=== PATIENT | female | born 1960 | race Caucasian/White ===

== ENCOUNTER → 2018-01-11 | Outpatient (CLI) | payer OTHER ==
--- NOTE | 2018-01-11 09:52 | KCIC ---
EXAM: Abdomen sonogram. HISTORY: Nausea. TECHNIQUE: Sonographic imaging of the abdomen was performed. COMPARISON: None. FINDINGS: The exam is limited due to body habitus. There is hepatomegaly. There is hepatic steatosis. No focal hepatic lesion is seen. There is a single mobile stone within the gallbladder. There is no gallbladder wall thickening. The common bile duct is normal in caliber. The right kidney is unremarkable. The pancreas is partially obscured due to bowel gas. The inferior vena cava is partially obscured due to body habitus. The aorta is not assessed. IMPRESSION: 1. Hepatomegaly and hepatic steatosis. 2. Cholelithiasis. 3. Limited exam due to body habitus and bowel gas. Electronically signed by: Beatriz Cristobal MD (01/11/2018 9:48 AM) [email or web address]
== END | disposition home or self-care (01) ==
LOC: KCIC US 08:23
PROVIDERS: ATTEND Family Medicine
DX: K76.0 Fatty (change of) liver, not elsewhere classified (principal); K80.20 Calculus of gallbladder without cholecystitis without obstruction; R16.0 Hepatomegaly, not elsewhere classified
CPT/HCPCS: 76705

== ENCOUNTER → 2019-01-14 | Day surgery (SDC) | payer MEDICARE, OTHER ==
[~2019-01-14] MED LIST: HYDROmorphone 2 MG/ML VIAL IV PRN; INSU300I SQ; IV RINGERS,LACTATED 1000ML 1,000 ML IV SCH; LIDOCAINE 2% PF 5 ML VIAL. ONE; LIRA0.6P2 SQ; METF500T16 PO; MORPHINE SULFATE 2 MG/ML VIAL. IV PRN; ONDANSETRON PF 4 MG/2 ML VIAL. IV PRN; PREG100C PO; PROCHLORPERAZINE 10 MG/2 ML VIAL. IV PRN; PROPOFOL 40 ML IV ONE; VENL150C PO; fentaNYL PF VIAL 100 MCG/2 ML VIAL IV PRN
--- NOTE | 2019-01-14 12:39 | PDOC1 ---
History and Physical Date of Admission Date of Admission DATE: 01/14/19 TIME: 12:37 Identification/Chief Complaint Chief Complaint screening colon cancer Source Source: Patient History of Present Illness History of Present Illness Had a colonoscopy 10 years ago. Denies any colon problems. Past Medical History Endocrine: Diabetes Past Surgical History Past Surgical History: No pertinent history Family History Family History: No Significant Social History Smoke: <1 pack per day ALCOHOL: rare Drugs: None Current Medications Current Medications Current Medications Ondansetron HCl (Zofran) 4 mg PRN Q6HRS PRN IV NAUSEA/VOMITING; Start 01/14/19 at 07:00; Stop 01/15/19 at 06:59 Fentanyl Citrate (Fentanyl 2ml Vial) 25 mcg PRN Q5MIN PRN IV MILD PAIN 1-3; Start 01/14/19 at 07:00; Stop 01/15/19 at 06:59 Fentanyl Citrate (Fentanyl 2ml Vial) 50 mcg PRN Q5MIN PRN IV MODERATE TO SEVERE PAIN; Start 01/14/19 at 07:00; Stop 01/15/19 at 06:59 Morphine Sulfate (Morphine Sulfate) 1 mg PRN Q10MIN PRN IV SEVERE PAIN 7-10; Start 01/14/19 at 07:00; Stop 01/15/19 at 06:59 Ringer's Solution 1,000 ml @ 30 mls/hr Q24H IV ; Start 01/14/19 at 07:00; Stop 01/14/19 at 18:59 Hydromorphone HCl (Dilaudid) 0.5 mg PRN Q10MIN PRN IV SEV PAIN, Second choice; Start 01/14/19 at 07:00; Stop 01/15/19 at 06:59 Prochlorperazine Edisylate (Compazine) 5 mg PACU PRN PRN IV NAUSEA, MRX1; Start 01/14/19 at 07:00; Stop 01/15/19 at 06:59 Allergies Allergies: Coded Allergies: No Known Drug Allergies (Unverified , 01/14/19) Physical Exam General: Alert, Oriented X3, Cooperative, No acute distress HEENT: Atraumatic, PERRLA, EOMI Lungs: Clear to auscultation, Normal air movement Heart: RRR, no murmurs Abdomen: Normal bowel sounds, Soft, No tenderness, Other (obese) Rectal Exam: not examined Extremities: No edema Skin: No significant lesion Neuro: Normal speech Psych/Mental Status: Mental status NL VTE Prophylaxis Ordered VTE Prophylaxis Devices: No VTE Pharmacological Prophylaxi: No Assessment/Plan Assessment/Plan Screening colon cancer-Colonoscopy CHRISTIANO HERCULES MD Jan 14, 2019 12:39
[2019-01-14 13:40] VITALS: BP 96/59
--- NOTE | 2019-01-17 18:11 | PATHOLOGY ---
[facility] Accession Number: [id number] . 01 Material submitted: . PART A: colon - 120CM POLYP BIOPSY PART B: colon - 60CM POLYP BIOPSY . 01 Clinical history: . Screen . 02 Diagnosis: A. Colon biopsies, colon polyp at 120 cm: - Tubular adenoma. . B. Colon biopsy, polyp at 60 cm: - Hyperplastic polyp. (JPM:bird; 01/17/2019) QMS/01/17/2019 . 02 Comment: There is no high grade dysplasia or evidence of malignancy. . 02 Electronically signed: . Alonzo Chance MD, Pathologist NPI- [id number] . 01 Gross description: . A. Received in formalin labeled "[place], 120 cm polyp," are 4 segments of simons soft tissue measuring 1.5 x 1.1 x 0.4 cm in aggregate dimensions and ranging from 0.4 to 0.9 cm in maximum dimension. The specimen is submitted entirely in cassette A1. . B. Received in formalin labeled "[place], 60 cm polyp biopsy," is a single segment of simons soft tissue measuring 0.6 cm in maximum dimension. The specimen is entirely submitted in cassette B1. (TSD; 01/14/2019) TOB/TOB . 02 Pathologist provided ICD-10: D12.6, K63.5 . 02 CPT . 374738, 346760 Specimen Comment: A courtesy copy of this report has been sent to Specimen Comment: [phone], . Specimen Comment: Report sent to / DR FINN Performed at: [address], [place], [place] [id number] MD Ricky Marion MD Phone: [phone] Performed at: [address] [id number] MD Alonzo Chance MD Phone: [phone]
== END ==
LOC: ENDOS 12:12
PROVIDERS: ATTEND Surgery
DX: Z12.11 Encounter for screening for malignant neoplasm of colon (principal); D12.3 Benign neoplasm of transverse colon; K63.5 Polyp of colon; F17.210 Nicotine dependence, cigarettes, uncomplicated; Z98.890 Other specified postprocedural states
CPT/HCPCS: 45380; 45385; 88305; J2001; J2704

== ENCOUNTER → 2019-12-02 | Outpatient (CLI) | payer MEDICARE ==
[2019-01-14 13:40] VITALS: BP 96/59
[~2019-12-02] MED LIST changes: -HYDROmorphone 2 MG/ML VIAL IV PRN; -IV RINGERS,LACTATED 1000ML 1,000 ML IV SCH; -LIDOCAINE 2% PF 5 ML VIAL. ONE; -MORPHINE SULFATE 2 MG/ML VIAL. IV PRN; -ONDANSETRON PF 4 MG/2 ML VIAL. IV PRN; -PROCHLORPERAZINE 10 MG/2 ML VIAL. IV PRN; -PROPOFOL 40 ML IV ONE; -fentaNYL PF VIAL 100 MCG/2 ML VIAL IV PRN
--- NOTE | 2019-12-02 15:53 | CARD ---
MR#: [id number] Date of Study: 12/02/2019 Ordering Physician: Nena FINN, Referring Physician: Nena FINN, Tech: Beverley Bhatti RDCS APPROVED REPORT EXAM: Two-dimensional and M-mode echocardiogram with Doppler and color Doppler. Other Information Quality : Fair INDICATION Murmur 2D DIMENSIONS RVDd2.0 (2.9-3.5cm)Left Atrium(2D)3.0 (1.6-4.0cm) IVSd1.4 (0.7-1.1cm)Aortic Root(2D)2.7 (2.0-3.7cm) LVDd3.0 (3.9-5.9cm)LVOT Diameter2.3 (1.8-2.4cm) PWd1.5 (0.7-1.1cm)LVDs2.3 (2.5-4.0cm) FS (%) 30.0 %SV18.5 ml LVEF(%)60.0 (>50%) Aortic Valve AoV Peak Aurelio.204.5cm/sAoV VTI34.5cm AO Peak GR.16.7mmHgLVOT Peak Aurelio.163.5cm/s LVOT VTI 30.99cmAO Mean GR.10mmHg JIMBO (VMAX)3.79rv2CMU (VTI)3.58cm2 Mitral Valve MV E Zvgihvqk31.3cm/sMV DECEL [id number] MV A Dcbtnreu640.6cm/sMV LPU791tc E/A Ratio0.8MVA (PHT)1.75cm2 TDI E/Lateral E'10.0E/Medial E'11.7 Pulmonary Vein S1 Pkymfhkr74.5cm/sD2 Ybvucbbs40.1cm/s LEFT VENTRICLE The left ventricle is normal size. There is normal left ventricular wall thickness. The left ventricu lar systolic function is normal and the ejection fraction is within normal range. The Ejection Fracti on is 60-65%. There is normal LV segmental wall motion. Transmitral Doppler flow pattern is Grade I-a bnormal relaxation pattern. RIGHT VENTRICLE The right ventricle is normal size. The right ventricular systolic function is normal. ATRIA The left atrium size is normal. The right atrium size is normal. The interatrial septum is intact wit h no evidence for an atrial septal defect or patent foramen ovale as noted on 2-D or Doppler imaging. AORTIC VALVE The aortic valve is calcified but opens well. Doppler and Color Flow revealed no significant aortic r egurgitation. There is no significant aortic valvular stenosis. MITRAL VALVE The mitral valve is normal in structure and function. There is no evidence of mitral valve prolapse. There is no mitral valve stenosis. Doppler and Color Flow revealed no mitral valve regurgitation note d. TRICUSPID VALVE The tricuspid valve is normal in structure and function. Doppler and Color Flow revealed no tricuspid valve regurgitation noted. There is no tricuspid valve stenosis. PULMONIC VALVE The pulmonic valve is not well visualized. Doppler and Color Flow revealed trace pulmonic valvular re gurgitation. There is no pulmonic valvular stenosis. GREAT VESSELS The aortic root is normal in size. The ascending aorta is not well seen. The IVC is normal in size an d collapses >50% with inspiration. PERICARDIAL EFFUSION There is no evidence of significant pericardial effusion. Critical Notification Critical Value: No <Conclusion> The left ventricular systolic function is normal and the ejection fraction is within normal range. Th e Ejection Fraction is 60-65%. There is normal LV segmental wall motion. Signed by : Tay Schulz, Electronically Approved : 12/02/2019 15:53:14
== END | disposition home or self-care (01) ==
LOC: ECHO 14:50
PROVIDERS: ATTEND Family Medicine
DX: I35.8 Other nonrheumatic aortic valve disorders (principal); R01.1 Cardiac murmur, unspecified
CPT/HCPCS: 93306

== ENCOUNTER → 2019-12-14 | Outpatient (CLI) | payer MEDICARE ==
[2019-01-14 13:40] VITALS: BP 96/59
[~2019-12-14] MED LIST changes: +IOHEXOL 300 MG/ML 100ML VIAL. IV ONE
--- NOTE | 2019-12-14 12:38 | KCIC ---
EXAM: Abdomen CT with intravenous contrast. HISTORY: Elevated lipase. TECHNIQUE: Computed tomographic images of the abdomen were obtained following the administration of intravenous contrast. Multiplanar reformatting was performed. *One or more of the following individualized dose reduction techniques were utilized for this examination: 1. Automated exposure control. 2. Adjustment of the mA and/or kV according to patient size. 3. Use of iterative reconstruction technique. COMPARISON: Sonogram dated 01/11/2018. FINDINGS: Evaluation of the lower thorax demonstrates no infiltrate, pleural effusion or suspicious pulmonary nodule. The heart is normal in size. There is hepatic steatosis and hepatomegaly. There is hepatic surface nodularity due to superimposed cirrhosis. No focal hepatic lesion is seen. There is a small amount of abdominal ascites and there is splenomegaly due to portal hypertension. The spleen measures 16.8 cm in maximum dimension. The stomach is unremarkable. There is mild wall thickening involving the proximal and mid small bowel, likely due to the presence of ascites. No bowel obstruction is seen. No pancreatic lesion is seen. The gallbladder is surgically absent. The adrenal glands are unremarkable. There is mild renal cortical lobulation, developmental or due to scarring. No pathologically enlarged lymph node is seen. There is no suspicious osseous lesion. IMPRESSION: 1. Hepatomegaly and hepatic steatosis with superimposed cirrhosis. 2. Small amount of abdominal ascites and splenomegaly due to portal hypertension. 3. Suspected reactive wall thickening involving the proximal small bowel due to the presence of ascites. 4. Unremarkable pancreas. Electronically signed by: Beatriz Cristobal MD (12/14/2019 12:35 PM) [id number]
== END ==
LOC: KCIC CT 11:18
PROVIDERS: ATTEND Family Medicine
DX: K76.0 Fatty (change of) liver, not elsewhere classified (principal); R16.2 Hepatomegaly with splenomegaly, not elsewhere classified; K74.69 Other cirrhosis of liver; R18.8 Other ascites; K76.6 Portal hypertension
CPT/HCPCS: 74160; Q9967